=== PATIENT | female | born 1960 | race African-American/Black ===

== ENCOUNTER 2018-01-01 19:40 | Emergency (ER) | payer SELFPAY ==
[2018-01-01] MEDS ORDERED: ASPIRIN 81 MG TABLET, CHEWABLE PO ONE (20:32)
--- NOTE | 2018-01-01 20:35 | ER Document Report ---
ED Medical Screen (RME) - General Chief Complaint: Chest Pain Stated Complaint: CHEST PAIN Time Seen by Provider: 01/01/18 20:29 Notes: 57-year-old female, chief complaint of chest pain in her left lower chest with radiation to the back for 3 days, also complains of cough with green sputum production and felt like she had a fever. Some shortness of breath. Hypertensive but states she forgot to take her labetalol. States that currently she does not have any symptoms unless she takes a deep breath. TRAVEL OUTSIDE OF THE [place] IN LAST 30 DAYS: No - Related Data Allergies/Adverse Reactions: No Known Allergies Allergy (Unverified 01/01/18 19:44) Past Medical History - Social History Frequency of alcohol use: None Drug Abuse: None - Past Medical History Cardiac Medical History: Reports: Hx Hypertension Renal/ Medical History: Denies: Hx Peritoneal Dialysis Physical Exam - Vital signs Vitals: Temp Pulse Resp BP Pulse Ox 99.2 F 64 18 219/127 H 98 01/01/18 20:21 01/01/18 20:21 01/01/18 20:21 01/01/18 20:21 01/01/18 20:21 - Respiratory Respiratory status: No respiratory distress Breath sounds: Normal. No: Decreased air movement, Wheezing - Cardiovascular Rhythm: Regular Heart sounds: Normal auscultation, S1 appreciated, S2 appreciated Murmur: No Course - Vital Signs Vital signs: Temp Pulse Resp BP Pulse Ox 99.2 F 64 18 219/127 H 98 01/01/18 20:21 01/01/18 20:21 01/01/18 20:21 01/01/18 20:21 01/01/18 20:21
[2018-01-01 21:05] LABS: ABSOLUTE BASOPHILS # (AUTO) 0.1 10^3/uL (0.0-0.2); ABSOLUTE EOSINOPHILS # (AUTO) 0.1 10^3/uL (0.0-0.6); ABSOLUTE LYMPHOCYTES (AUTO) 1.5 10^3/uL (0.5-4.7); ABSOLUTE MONOCYTES (AUTO) 0.3 10^3/uL (0.1-1.4); ABSOLUTE NEUT (AUTO) 1.9 10^3/uL (1.7-8.2); BASOPHILS % (AUTO) 1.4 % (0-2); EOSINOPHILS % (AUTO) 1.7 % (0-6); HEMATOCRIT 34.4 % (36.0-47.0); HEMOGLOBIN 11.3 g/dL (12.0-15.5); LYMPHOCYTES % (AUTO) 39.4 % (13-45); MEAN CORPUSCULAR HGB CONC 32.8 g/dL (32.0-36.0); MEAN CORPUSCULAR VOLUME 67 fl (80-97); MONOCYTES % (AUTO) 7.1 % (3-13); PLATELET COUNT 165 10^3/uL (150-450); RED BLOOD COUNT 5.14 10^6/uL (3.72-5.28); RED CELL DISTRIBUTION WIDTH 17.3 % (11.5-14.0); SEGMENTED NEUTROPHILS % (AUTO) 50.4 % (42-78); TOTAL CELLS COUNTED % (AUTO) 100 %; WHITE BLOOD COUNT 3.7 10^3/uL (4.0-10.5)
[2018-01-01 21:24] LABS: ALANINE AMINOTRANSFERASE 25 U/L (9-52); ALBUMIN 4.2 g/dL (3.5-5.0); ALKALINE PHOSPHATASE 77 U/L (38-126); ANION GAP 11 (5-19); ASPARTATE AMINO TRANSFERASE 29 U/L (14-36); BILIRUBIN,DIRECT 0.2 mg/dL (0.0-0.4); BILIRUBIN,TOTAL 0.3 mg/dL (0.2-1.3); BLOOD UREA NITROGEN 9 mg/dL (7-20); CALCIUM 9.5 mg/dL (8.4-10.2); CARBON DIOXIDE 29 mmol/L (22-30); CHLORIDE 105 mmol/L (98-107); CREATINE KINASE 280 U/L (30-135); GLUCOSE 91 mg/dL (75-110); POTASSIUM 3.6 mmol/L (3.6-5.0); SODIUM 144.7 mmol/L (137-145); TOTAL PROTEIN 7.6 g/dL (6.3-8.2)
[2018-01-01] MEDS ORDERED: HYDROCHLOROTHIAZIDE 25 MG TABLET PO ONE (21:27)
[2018-01-01] MEDS ORDERED: AMLODIPINE BESYLATE 10 MG TABLET PO ONE (21:27)
--- NOTE | 2018-01-01 21:33 | ER Document Report ---
ED General - General Chief Complaint: Chest Pain Stated Complaint: CHEST PAIN Time Seen by Provider: 01/01/18 20:29 Notes: Patient is a 57 year old female with a past medical history of essential hypertension, no known cardiac history who presents with 2-3 days of stabbing, constant right-sided chest pain most pronounced when she has an episode of coughing. The patient states that she has had a upper respiratory infection for the past 1 week with associated coughing. She notes that 2-3 days ago she began to develop a stabbing, constant with intermittently worsening pain to the right side of the chest although does note that it can be diffuse in the chest. Contrary to triage assessment note she denies any associated shortness of breath, and denies any back pain to me. She denies a history of similar symptoms in the past. She has not tried to improve her symptoms. She does not have a local general doctor. Patient also notes that she has a long-standing history of poor blood pressure control and currently only takes labetalol for this and has also been noncompliant with this medication. She denies any history of DVT or pulmonary embolus. No history of aortic pathology. She denies any pleuritic pain. TRAVEL OUTSIDE OF THE [place] IN LAST 30 DAYS: No - Related Data Allergies/Adverse Reactions: No Known Allergies Allergy (Unverified 01/01/18 19:44) Past Medical History - General Information source: Patient, Relative - Social History Smoking Status: Never Smoker Frequency of alcohol use: None Drug Abuse: None Lives with: Family Family History: Reviewed & Not Pertinent Patient has suicidal ideation: No Patient has homicidal ideation: No - Past Medical History Cardiac Medical History: Reports: Hx Hypertension Renal/ Medical History: Denies: Hx Peritoneal Dialysis Review of Systems - Review of Systems Notes: Constitutional: Negative for fever. HENT: Negative for sore throat. Eyes: Negative for visual changes. Cardiovascular: Positive for chest pain. Respiratory: Negative for shortness of breath. Gastrointestinal: Negative for abdominal pain, vomiting or diarrhea. Genitourinary: Negative for dysuria. Musculoskeletal: Negative for back pain. Skin: Negative for rash. Neurological: Negative for headaches, weakness or numbness. 10 point ROS negative except as marked above and in HPI. Physical Exam - Vital signs Vitals: Temp Pulse Resp BP Pulse Ox 99.2 F 64 18 219/127 H 98 01/01/18 20:21 01/01/18 20:21 01/01/18 20:21 01/01/18 20:21 01/01/18 20:21 Interpretation: Hypertensive Notes: PHYSICAL EXAMINATION: GENERAL: Well-appearing, well-nourished and in no acute distress. HEAD: Atraumatic, normocephalic. EYES: Pupils equal round and reactive to light, extraocular movements intact, sclera anicteric, conjunctiva are normal. ENT: nares patent, oropharynx clear without exudates. Moist mucous membranes. NECK: Normal range of motion, supple without lymphadenopathy LUNGS: Breath sounds clear to auscultation bilaterally and equal. No wheezes rales or rhonchi. HEART: Regular rate and rhythm without murmurs ABDOMEN: Soft, nontender, normoactive bowel sounds. No guarding, no rebound. No masses appreciated. EXTREMITIES: Normal range of motion, no pitting or edema. No cyanosis. NEUROLOGICAL: No focal neurological deficits. Moves all extremities spontaneously and on command. PSYCH: Normal mood, normal affect. SKIN: Warm, Dry, normal turgor, no rashes or lesions noted. Course - Re-evaluation Re-evalutation: 01/01/18 21:27 Presentation of chest pain in an otherwise well appearing patient. Low clinical suspicion for ACS given clinical history, exam, EKG without ST elevations or depressions, and negative initial troponin. HEART score less than or equal to 3. Patient does report a history of marked hypertension stating "it is actually usually worse than that" regarding her blood pressures that are in the low 200s systolic and 120s-130s diastolic. She has been taking labetalol but states that it does not appear to be working for her blood pressure. PE also seems unlikely given clinical history, absence of tachycardia or dyspnea. Well' s score is 0. CXR without evidence of pneumothorax or pneumonia. No widened mediastinum. Aortic dissection also seems unlikely given history, symmetric pulses, CXR and duration of her hypertension. Her chest pain appears to be most likely costochondritis. Contrary to triage assessment, patient denies any pain radiating to the back. She also denies any symptoms with inspiration only with coughing or movement. It is been going on for at least 4-5 days, is only present when she coughs vigorously and she has had a upper respiratory infection for the past 1-2 weeks. Patient was started on both hydrochlorthiazide and amlodipine for her blood pressure. At this time will discharge with return precautions and follow-up recommendations. Verbal discharge instructions given a the bedside and opportunity for questions given. Medication warnings reviewed. Patient is in agreement with this plan and has verbalized understanding of return precautions and the need for primary care follow-up in the next 24-72 hours. - Vital Signs Vital signs: Temp Pulse Resp BP Pulse Ox 99.2 F 64 12 208/117 H 100 01/01/18 20:21 01/01/18 20:21 01/01/18 22:01 01/01/18 22:01 01/01/18 22:01 - Laboratory Result Diagrams: 01/01/18 20:40 01/01/18 20:40 Laboratory results interpreted by me: 01/01/18 01/01/18 20:40 20:40 WBC 3.7 L Hgb 11.3 L Hct 34.4 L MCV 67 L MCH 22.0 L RDW 17.3 H Creatine Kinase 280 H - Diagnostic Test Radiology reviewed: Image reviewed, Reports reviewed Radiology results interpreted by me: 01/01/18 21:29 Chest x-ray: No acute infiltrate pneumothorax - EKG Interpretation by Me Additional EKG results interpreted by me: 01/01/18 21:30 Sinus rhythm. Rate 65. No ST elevations or depressions. QTC is 450. Findings consistent with LVH. Discharge - Discharge Clinical Impression: Essential hypertension, Viral upper respiratory infection Chest pain Qualifiers: Chest pain type: unspecified Qualified Code(s): R07.9 - Chest pain, unspecified Condition: Good Disposition: HOME, SELF-CARE Additional Instructions: You were seen today for blood pressure that was high. This is a long-term risk factor for multiple medical problems including heart attack and stroke. However, the blood pressure in of itself will not cause you to have an acute stroke or heart attack over the course of just several days or weeks. You need to have a gradual reduction of your blood pressure back to normal levels over the next several months in conjunction with your primary care physician. Return if you develop headache, weakness, numbness, chest pain, pass out, or have any other symptoms that are concerning to you. Please take hydrochlorothiazide and amlodipine as prescribed. Discontinue labetalol. You were seen today for chest pain. The exact cause of your pain is unclear. However, based on your cardiac enzyme testing, chest x-ray, and EKG it does not appear that it is from an immediately life-threatening cause at this time. Your pain is most likely related to your frequent coughing. You may take Tylenol 1000 mg every 6 hours as needed for pain. Please return to emergency department immediately if you have worsening of your chest pain, shortness of breath, vomiting, become unable to exert yourself due to pain or difficulty breathing, you pass out, or have any pain that radiates into your arms, jaw, or back. Please also return if you have any additional symptoms that are concerning to you. Prescriptions: Amlodipine Besylate 10 mg PO DAILY #30 tab Hydrochlorothiazide 25 mg PO DAILY #30 tablet Referrals: GARRY MOONEY MD [ACTIVE STAFF] - Follow up in 3-5 days
[2018-01-01 21:36] LABS: CREATINE KINASE MB 2.56 ng/mL (<4.55)
[2018-01-01 21:49] LABS: TROPONIN I < 0.012 ng/mL
--- NOTE | 2018-01-01 22:04 | RADIOLOGY REPORT (SQ) ---
EXAM DESCRIPTION: CHEST SINGLE VIEW COMPLETED DATE/TIME: 01/01/2018 8:51 pm REASON FOR STUDY: chest pain COMPARISON: None. EXAM PARAMETERS: NUMBER OF VIEWS: One view. TECHNIQUE: Single frontal radiographic view of the chest acquired. RADIATION DOSE: NA LIMITATIONS: None. FINDINGS: LUNGS AND PLEURA: No opacities, masses or pneumothorax. No pleural effusion. MEDIASTINUM AND HILAR STRUCTURES: No masses. Contour normal. HEART AND VASCULAR STRUCTURES: Heart size borderline. No failure BONES: No acute findings. HARDWARE: None in the chest. OTHER: No other significant finding. IMPRESSION: Borderline cardiomegaly without CHF. TECHNICAL DOCUMENTATION: JOB ID: [id number] [employer]- All Rights Reserved Reading location - IP/workstation name: [email or web address]
[2018-01-01 22:07] VITALS: BP 208/117
--- NOTE | 2018-01-02 08:59 | EKG REPORT ---
SEVERITY:- ABNORMAL ECG - SINUS RHYTHM LEFT VENTRICULAR HYPERTROPHY : Confirmed by: Berto Smith MD 02-Jan-2018 08:58:34
== END 2018-01-01 22:42 | disposition home or self-care (01) ==
LOC: ER 19:40
DX: J06.9 Acute upper respiratory infection, unspecified (principal); R07.9 Chest pain, unspecified; I10 Essential (primary) hypertension
CPT/HCPCS: 36415; 71045; 80053; 82550; 82553; 84484; 85025; 93005; 93010; 99285

== ENCOUNTER 2018-09-12 12:40 | Inpatient (IN) | payer OTHER ==
[2018-09-12] MEDS ORDERED: ASPIRIN 81 MG TABLET, CHEWABLE PO ONE (13:56)
[2018-09-12] MEDS ORDERED: NITROGLYCERIN 0.4 MG/TAB 25 TAB/BOTTLE SL ONE (13:57)
[2018-09-12] MEDS ORDERED: NITROGLYCERIN 5 MG (0.2 MG/HR) PATCH.TD24 TD ONE (13:58)
--- NOTE | 2018-09-12 14:00 | ER Document Report ---
ED Medical Screen (RME) - General Chief Complaint: Chest Pain > 30 Stated Complaint: CHEST PAIN Time Seen by Provider: 09/12/18 13:52 TRAVEL OUTSIDE OF THE [place] IN LAST 30 DAYS: No - HPI Notes: 09/12/18 13:59 Patient complained of left-sided chest pain which has been on and off for the past 3 weeks. Patient ran out of her high blood pressure medicine in June. Physical exam is unremarkable. - Related Data Allergies/Adverse Reactions: No Known Allergies Allergy (Verified 09/12/18 13:03) Past Medical History - Social History Frequency of alcohol use: Occasional Drug Abuse: None - Past Medical History Cardiac Medical History: Reports: Hx Hypertension Renal/ Medical History: Denies: Hx Peritoneal Dialysis Physical Exam - Vital signs Vitals: Temp Pulse Resp BP Pulse Ox 98.5 F 72 20 191/122 H 99 09/12/18 13:21 09/12/18 13:21 09/12/18 13:21 09/12/18 13:21 09/12/18 13:21 Course - Vital Signs Vital signs: Temp Pulse Resp BP Pulse Ox 98.5 F 72 20 191/122 H 99 09/12/18 13:21 09/12/18 13:21 09/12/18 13:21 09/12/18 13:21 09/12/18 13:21
[2018-09-12 14:21] LABS: ABSOLUTE LYMPHOCYTES (AUTO) 0.8 10^3/uL (0.5-4.7); ABSOLUTE MONOCYTES (AUTO) 0.2 10^3/uL (0.1-1.4); ABSOLUTE NEUT (AUTO) 1.1 10^3/uL (1.7-8.2); BASOPHILS % (AUTO) 0.7 % (0-2); EOSINOPHILS % (AUTO) 0.8 % (0-6); HEMATOCRIT 35.6 % (36.0-47.0); HEMOGLOBIN 11.4 g/dL (12.0-15.5); MEAN CORPUSCULAR HEMOGLOBIN 21.9 pg (27.0-33.4); MEAN CORPUSCULAR VOLUME 68 fl (80-97); MONOCYTES % (AUTO) 11.3 % (3-13); PLATELET COUNT 152 10^3/uL (150-450); RED BLOOD COUNT 5.22 10^6/uL (3.72-5.28); RED CELL DISTRIBUTION WIDTH 17.3 % (11.5-14.0); SEGMENTED NEUTROPHILS % (AUTO) 52.2 % (42-78); TOTAL CELLS COUNTED % (AUTO) 100 %; WHITE BLOOD COUNT 2.2 10^3/uL (4.0-10.5)
--- NOTE | 2018-09-12 14:25 | ER Document Report ---
ED General - General Chief Complaint: Chest Pain > 30 Stated Complaint: CHEST PAIN Time Seen by Provider: 09/12/18 13:52 Notes: Patient is a 58-year-old female that presents to the emergency department for chief complaint of chest pain. The patient reports that the pain started a few days ago and has been on and off. The currently rate the pain as 3 out of 10, and described as heaviness in the left chest that radiates to the left arm. Th ey have had associated shortness of breath. Denies any diaphoresis, fevers, cough or difficulty breathing. Their risk factors for heart disease include hypertension, uncontrolled not on medication. Patient states she is been concerned about this, she thinks she may have sickle cell as well, she is been having on and off chest pain for the past 3 weeks, and was taking Tums intermittently which was helping initially, but now it does not seem to be helping, and her pain was worse today so she decided come to the ED. Past Medical History: Hypertension, GERD, sickle cell anemia versus trait pat ient unsure Past Surgical History: Denies surgical history Social History: Denies tobacco, alcohol or drug use. Family History: Reviewed and noncontributory for presenting illness Allergies: Reviewed, see documented allergy list. REVIEW OF SYSTEMS: Other than noted above, the 12 point review of systems was reviewed with the patient and were negative, all pertinent findings are included in the HPI. PHYSICAL EXAMINATION: Vital signs reviewed, nursing noted reviewed. GENERAL: Well-appearing, well-nourished and in no acute distress. HEAD: Atraumatic, normocephalic. EYES: Eyes appear normal, extraocular movements intact, sclera anicteric, conjunctiva are normal. ENT: nares patent, oropharynx clear without exudates. Moist mucous membranes. NECK: Normal range of motion, supple without lymphadenopathy LUNGS: Breath sounds clear to auscultation bilaterally and equal. No wheezes rales or rhonchi. No chest wall tenderness HEART: Regular rate and rhythm without murmurs ABDOMEN: Soft, nontender, normoactive bowel sounds. No rebound, guarding, or rigidity. No masses appreciated. EXTREMITIES: Nontender, good range of motion, no pitting or edema. NEUROLOGICAL: No focal neurological deficits. Moves all extremities spontaneously Motor and sensory grossly intact on exam. PSYCH: Normal mood, normal affect. SKIN: Warm, Dry, normal turgor, no rashes or lesions noted on exposed skin TRAVEL OUTSIDE OF THE [place] IN LAST 30 DAYS: No - Related Data Allergies/Adverse Reactions: No Known Allergies Allergy (Verified 09/12/18 13:03) Past Medical History - Social History Smoking Status: Never Smoker Frequency of alcohol use: Occasional Drug Abuse: None Family History: Reviewed & Not Pertinent Patient has suicidal ideation: No Patient has homicidal ideation: No - Past Medical History Cardiac Medical History: Reports: Hx Hypertension Renal/ Medical History: Denies: Hx Peritoneal Dialysis Physical Exam - Vital signs Vitals: Temp Pulse Resp BP Pulse Ox 98.5 F 72 20 191/122 H 99 09/12/18 13:21 09/12/18 13:21 09/12/18 13:21 09/12/18 13:21 09/12/18 13:21 Course - Re-evaluation Re-evalutation: Patient seen and examined vital signs reviewed. Laboratory data and imaging were ordered as appropriate for the patient's presenting symptoms and complaint, with consideration of any critical or life threatening conditions that may be associated with their obtained history and exam as noted above. Patient was treated with aspirin, and sublingual nitroglycerin Results were reviewed when available and demonstrated negative troponin x2, EKG was nonischemic and unchanged from prior, chest x-ray negative The patient was re-evaluated and was stable and improved Evaluation was most consistent with chest pain, nonspecific, I feel this patient should be evaluated with serial troponins as her heart score was 4, and possible stress testing discussed with the hospitalist. Results were discussed with the patient at this point after careful consideration I feel that that patient should be admitted to the hospital. This was discussed with the patient that it is in the best interest for their care to be admitted for further evaluation and management. Patient agreed with this plan of care. A call was placed to the admitted physician, Dr. Sue who graciously accepted the patient onto their service. *Note is created using voice recognition software and may contain spelling, syntax or grammatical errors. Laboratory 09/12/18 09/12/18 09/12/18 14:01 14:01 14:01 WBC 2.2 L RBC 5.22 Hgb 11.4 L Hct 35.6 L MCV 68 L MCH 21.9 L MCHC 32.0 RDW 17.3 H Plt Count 152 Seg Neutrophils % 52.2 Lymphocytes % 35.0 Monocytes % 11.3 Eosinophils % 0.8 Basophils % 0.7 Absolute Neutrophils 1.1 L Absolute Lymphocytes 0.8 Absolute Monocytes 0.2 Absolute Eosinophils 0.0 Absolute Basophils 0.0 Platelet Comment DECREASED Poikilocytosis 2+ Anisocytosis 1+ Ovalocytes 2+ Elk Cells SLIGHT Schistocytes 1+ Retic Count (auto) Absolute Retic PT INR APTT Sodium 142.2 Potassium 3.8 Chloride 105 Carbon Dioxide 28 Anion Gap 9 BUN 9 Creatinine 0.65 Est GFR ( Amer) > 60 Est GFR (Non-Af Amer) > 60 Glucose 92 Calcium 9.4 Total Bilirubin 0.3 Direct Bilirubin 0.1 Neonat Total Bilirubin Not Reportable Neonat Direct Bilirubin Not Reportable Neonat Indirect Bili Not Reportable AST 28 ALT 29 Alkaline Phosphatase 92 Creatine Kinase 211 H CK-MB (CK-2) 2.60 Troponin I < 0.012 Total Protein 7.0 Albumin 4.2 09/12/18 09/12/18 09/12/18 14:01 14:01 16:50 WBC RBC Hgb Hct MCV MCH MCHC RDW Plt Count Seg Neutrophils % Lymphocytes % Monocytes % Eosinophils % Basophils % Absolute Neutrophils Absolute Lymphocytes Absolute Monocytes Absolute Eosinophils Absolute Basophils Platelet Comment Poikilocytosis Anisocytosis Ovalocytes Elk Cells Schistocytes Retic Count (auto) 1.43 Absolute Retic 0.074 PT 14.5 INR 1.07 APTT 30.9 Sodium Potassium Chloride Carbon Dioxide Anion Gap BUN Creatinine Est GFR ( Amer) Est GFR (Non-Af Amer) Glucose Calcium Total Bilirubin Direct Bilirubin Neonat Total Bilirubin Neonat Direct Bilirubin Neonat Indirect Bili AST ALT Alkaline Phosphatase Creatine Kinase CK-MB (CK-2) Troponin I < 0.012 Total Protein Albumin Chest X-Ray 09/12/18 13:56 IMPRESSION: NO ACUTE RADIOGRAPHIC FINDING IN THE CHEST. - Vital Signs Vital signs: Temp Pulse Resp BP Pulse Ox 98.5 F 72 17 204/113 H 98 09/12/18 13:21 09/12/18 13:21 09/12/18 18:01 09/12/18 18:01 09/12/18 18:01 - Laboratory Result Diagrams: 09/12/18 14:01 09/12/18 14:01 Laboratory results interpreted by me: 09/12/18 09/12/18 14:01 14:01 WBC 2.2 L Hgb 11.4 L Hct 35.6 L MCV 68 L MCH 21.9 L RDW 17.3 H Absolute Neutrophils 1.1 L Creatine Kinase 211 H - EKG Interpretation by Me Additional EKG results interpreted by me: EKG demonstrates sinus rhythm with a ventricular rate of 65 bpm, left axis deviation, QTC 421 ms, there is slight ST depressions in leads I and aVL as well as V4 through V6, this is compared with a prior EKG from 01/01/2018, without significant change. Discharge - Discharge Clinical Impression: Uncontrolled hypertension Chest pain Qualifiers: Chest pain type: unspecified Qualified Code(s): R07.9 - Chest pain, unspecified Anemia Qualifiers: Anemia type: unspecified type Qualified Code(s): D64.9 - Anemia, unspecified Condition: Stable Disposition: ADMITTED OBSERVATION Admitting Provider: Hospitalist - Dr. Sue Unit Admitted: Telemetry
[2018-09-12 14:26] LABS: INTERNATIONAL RATION (INR) 1.07; PROTHROMBIN TIME 14.5 SEC (11.4-15.4)
[2018-09-12 14:27] LABS: PARTIAL THROMBOPLASTIN TIME 30.9 SEC (23.5-35.8)
[2018-09-12 14:38] LABS: ALANINE AMINOTRANSFERASE 29 U/L (9-52); ALBUMIN 4.2 g/dL (3.5-5.0); ALKALINE PHOSPHATASE 92 U/L (38-126); ANION GAP 9 (5-19); ASPARTATE AMINO TRANSFERASE 28 U/L (14-36); BILIRUBIN,DIRECT 0.1 mg/dL (0.0-0.4); BILIRUBIN,TOTAL 0.3 mg/dL (0.2-1.3); BLOOD UREA NITROGEN 9 mg/dL (7-20); CALCIUM 9.4 mg/dL (8.4-10.2); CARBON DIOXIDE 28 mmol/L (22-30); CHLORIDE 105 mmol/L (98-107); CREATINE KINASE 211 U/L (30-135); GLUCOSE 92 mg/dL (75-110); POTASSIUM 3.8 mmol/L (3.6-5.0); SODIUM 142.2 mmol/L (137-145)
[2018-09-12 14:45] LABS: ANISOCYTOSIS 1+; BURR CELLS SLIGHT; OVALOCYTES 2+; PLATELET COMMENT DECREASED; POIKILOCYTOSIS 2+; SCHISTOCYTES 1+
[2018-09-12 14:51] LABS: TROPONIN I < 0.012 ng/mL
--- NOTE | 2018-09-12 15:13 | RADIOLOGY REPORT (SQ) ---
EXAM DESCRIPTION: CHEST SINGLE VIEW COMPLETED DATE/TIME: 09/12/2018 2:59 pm REASON FOR STUDY: Chest pain COMPARISON: None. EXAM PARAMETERS: NUMBER OF VIEWS: One view. TECHNIQUE: Single frontal radiographic view of the chest acquired. RADIATION DOSE: NA LIMITATIONS: None. FINDINGS: LUNGS AND PLEURA: No opacities, masses or pneumothorax. No pleural effusion. MEDIASTINUM AND HILAR STRUCTURES: No masses. Contour normal. HEART AND VASCULAR STRUCTURES: Heart normal in size. Normal vasculature. BONES: No acute findings. HARDWARE: None in the chest. OTHER: No other significant finding. IMPRESSION: NO ACUTE RADIOGRAPHIC FINDING IN THE CHEST. TECHNICAL DOCUMENTATION: JOB ID: [id number] [employer]- All Rights Reserved Reading location - IP/workstation name: [email or web address]
[2018-09-12 15:44] LABS: ABSOLUTE RETICS # 0.074 10^6/uL (0.028-0.122); RETICULOCYTE COUNT (AUTO) 1.43 % (0.66-2.85)
[2018-09-12] MEDS ORDERED: ONDANSETRON HCL INJ/PF 4 MG/2 ML SDV IV PRN (18:14)
[2018-09-12] MEDS ORDERED: NITROGLYCERIN 0.4 MG/TAB 25 TAB/BOTTLE SL PRN (18:17)
[2018-09-12] MEDS ORDERED: METOPROLOL TARTRATE 100 MG TABLET PO ONE (18:28)
[2018-09-12] MEDS ORDERED: HYDRALAZINE HCL 50 MG TABLET PO ONE (18:29)
--- NOTE | 2018-09-12 18:47 | EKG REPORT ---
SEVERITY:- ABNORMAL ECG - SINUS RHYTHM LVH WITH SECONDARY REPOLARIZATION ABNORMALITY : Confirmed by: Berto Smith MD 12-Sep-2018 18:47:05
--- NOTE | 2018-09-12 18:58 | PDOC H&P ---
History of Present Illness Admission Date/PCP: 09/12/18 18:05 History of Present Illness: HUMA GARCIA is a 58 year old black female patient from [facility] with past medical history of hypertension and sickle cell trait presents with chief complaint of chest pain of 3 days duration. She describes the chest pain as heaviness localized to the epigastric area and it is nonradiating. Patient denies any chills fever cough palpitation or diaphoresis. No nausea vomiting abdominal pain or any urinary complaints. Patient even though she has hypertension she stopped taking since June of last year because of financial issues. Her blood work shows 2 sets of cardiac enzymes negative. Her EKG is unremarkable. Patient also found to have hypertensive emergency with blood pressure of 204/120. She is given IV hydralazine p.o. metoprolol and p.o. hydralazine. Past Medical History Cardiac Medical History: Reports: Hypertension Social History Smoking Status: Never Smoker - Advance Directive Resuscitation Status: Full Code Family History Family History: Reviewed & Not Pertinent Parental Family History Reviewed: Yes Children Family History Reviewed: Yes Sibling(s) Family History Reviewed.: Yes Medication/Allergy Allergies/Adverse Reactions: No Known Allergies Allergy (Verified 09/12/18 13:03) Review of Systems Constitutional: ABSENT: chills, fever(s), headache(s), weight gain, weight loss Eyes: ABSENT: visual disturbances Ears: ABSENT: hearing changes Cardiovascular: PRESENT: chest pain. ABSENT: dyspnea on exertion, edema, orthropnea, palpitations Respiratory: ABSENT: cough, hemoptysis Gastrointestinal: ABSENT: abdominal pain, constipation, diarrhea, hematemesis, hematochezia, nausea, vomiting Genitourinary: ABSENT: dysuria, hematuria Musculoskeletal: ABSENT: joint swelling Integumentary: ABSENT: rash, wounds Neurological: ABSENT: abnormal gait, abnormal speech, confusion, dizziness, focal weakness, syncope Psychiatric: ABSENT: anxiety, depression, homidical ideation, suicidal ideation Endocrine: ABSENT: cold intolerance, heat intolerance, polydipsia, polyuria Hematologic/Lymphatic: ABSENT: easy bleeding, easy bruising Physical Exam Vital Signs: Temp Pulse Resp BP Pulse Ox 98.5 F 72 16 196/107 H 98 09/12/18 13:21 09/12/18 13:21 09/12/18 18:31 09/12/18 18:31 09/12/18 18:31 Intake & Output 09/11/18 09/12/18 09/13/18 06:59 06:59 06:59 Weight 88.6 kg General appearance: PRESENT: no acute distress, well-developed, well-nourished Head exam: PRESENT: atraumatic, normocephalic Eye exam: PRESENT: conjunctiva pink, EOMI, PERRLA. ABSENT: scleral icterus Ear exam: PRESENT: normal external ear exam Mouth exam: PRESENT: moist, tongue midline Neck exam: ABSENT: carotid bruit, JVD, lymphadenopathy, thyromegaly Respiratory exam: PRESENT: clear to auscultation gui. ABSENT: rales, rhonchi, wheezes Cardiovascular exam: PRESENT: RRR. ABSENT: diastolic murmur, rubs, systolic murmur Pulses: PRESENT: normal dorsalis pedis pul Vascular exam: PRESENT: normal capillary refill GI/Abdominal exam: PRESENT: normal bowel sounds, soft. ABSENT: distended, guarding, mass, organolmegaly, rebound, tenderness Rectal exam: PRESENT: deferred Extremities exam: PRESENT: full ROM. ABSENT: calf tenderness, clubbing, pedal edema Neurological exam: PRESENT: alert, awake, oriented to person, oriented to place, oriented to time, oriented to situation, CN II-XII grossly intact. ABSENT: motor sensory deficit Psychiatric exam: PRESENT: appropriate affect, normal mood. ABSENT: homicidal ideation, suicidal ideation Skin exam: PRESENT: dry, intact, warm. ABSENT: cyanosis, rash Results Laboratory Results: 09/12/18 14:01 09/12/18 14:01 09/12/18 09/12/18 09/12/18 14:01 14:01 14:01 WBC 2.2 L RBC 5.22 Hgb 11.4 L Hct 35.6 L MCV 68 L MCH 21.9 L MCHC 32.0 RDW 17.3 H Plt Count 152 Seg Neutrophils % 52.2 Lymphocytes % 35.0 Monocytes % 11.3 Eosinophils % 0.8 Basophils % 0.7 Absolute Neutrophils 1.1 L Absolute Lymphocytes 0.8 Absolute Monocytes 0.2 Absolute Eosinophils 0.0 Absolute Basophils 0.0 Retic Count (auto) 1.43 Absolute Retic 0.074 Sodium 142.2 Potassium 3.8 Chloride 105 Carbon Dioxide 28 Anion Gap 9 BUN 9 Creatinine 0.65 Est GFR ( Amer) > 60 Est GFR (Non-Af Amer) > 60 Glucose 92 Calcium 9.4 Total Bilirubin 0.3 AST 28 ALT 29 Alkaline Phosphatase 92 Total Protein 7.0 Albumin 4.2 09/12/18 09/12/18 09/12/18 14:01 14:01 16:50 Creatine Kinase 211 H CK-MB (CK-2) 2.60 Troponin I < 0.012 < 0.012 Impressions: Chest X-Ray 09/12/18 13:56 IMPRESSION: NO ACUTE RADIOGRAPHIC FINDING IN THE CHEST. Assessment & Plan - Diagnosis (1) Chest pain Is this a current diagnosis for this admission?: Yes Plan: Patient will be admitted to the hospital for observation and to stress her in the morning. (2) Hypertensive emergency Is this a current diagnosis for this admission?: Yes Plan: Patient has been started Lopressor 50 mg twice a day and hydralazine 50 mg every 8 hours. (3) Chronic anemia Is this a current diagnosis for this admission?: Yes Plan: May be related to her sickle cell trait.
[2018-09-12] MEDS: ENOXAPARIN SODIUM INJ 40 MG/0.4 ML DISP.SYRIN SUBCUT SCH (18:59)
[2018-09-12] MEDS ORDERED: HYDRALAZINE HCL INJ/PF 20 MG/1 ML SDV IV ONE (19:30)
[2018-09-13] MEDS: PANTOPRAZOLE SODIUM 40 MG TABLET.DR PO SCH ×2 (05:36→16:13)
[2018-09-13] MEDS ORDERED: METOPROLOL TARTRATE 50 MG TABLET PO SCH (06:00)
[2018-09-13] MEDS ORDERED: HYDRALAZINE HCL 50 MG TABLET PO SCH (06:00)
[2018-09-13] MEDS ORDERED: HYDRALAZINE HCL INJ/PF 20 MG/1 ML SDV ONE (08:24)
[2018-09-13] MEDS ORDERED: HYDRALAZINE HCL INJ/PF 20 MG/1 ML SDV IV ONE (08:30)
[2018-09-13] MEDS: LISINOPRIL 10 MG TABLET PO SCH (11:35)
[2018-09-13] MEDS: ENOXAPARIN SODIUM INJ 40 MG/0.4 ML DISP.SYRIN SUBCUT SCH (11:38)
[2018-09-13] MEDS: HYDRALAZINE HCL INJ/PF 20 MG/1 ML SDV IV PRN (11:38)
[2018-09-13] MEDS: ACETAMINOPHEN 325 MG TABLET PO PRN (13:23)
[2018-09-13] MEDS: HYDRALAZINE HCL 25 MG TABLET PO SCH ×2 (16:13→21:34)
--- NOTE | 2018-09-13 16:39 | PDOC PROGRESS REPORT ---
Subjective Progress Note for:: 09/13/18 Reason For Visit: CHEST PAIN Physical Exam Vital Signs: Temp Pulse Resp BP Pulse Ox 98.2 F 90 18 159/107 H 98 09/13/18 15:28 09/13/18 15:28 09/13/18 15:28 09/13/18 15:28 09/13/18 15:28 Intake & Output 09/12/18 09/13/18 09/14/18 06:59 06:59 06:59 Weight 88.7 kg General appearance: PRESENT: no acute distress, cooperative, well-developed, well-nourished Head exam: PRESENT: atraumatic, normocephalic Eye exam: PRESENT: conjunctiva pink, EOMI, PERRLA. ABSENT: scleral icterus Mouth exam: PRESENT: moist, tongue midline Neck exam: ABSENT: carotid bruit, JVD, lymphadenopathy, thyromegaly Respiratory exam: PRESENT: clear to auscultation gui, symmetrical, unlabored. ABSENT: rales, rhonchi, wheezes Cardiovascular exam: PRESENT: RRR, +S1, +S2. ABSENT: diastolic murmur, rubs, systolic murmur Pulses: PRESENT: normal dorsalis pedis pul Vascular exam: PRESENT: normal capillary refill GI/Abdominal exam: PRESENT: normal bowel sounds, soft. ABSENT: distended, guarding, mass, organolmegaly, rebound, tenderness Rectal exam: PRESENT: deferred Extremities exam: PRESENT: full ROM. ABSENT: calf tenderness, clubbing, pedal edema Neurological exam: PRESENT: alert, awake, oriented to person, oriented to place, oriented to time, oriented to situation, CN II-XII grossly intact. ABSENT: motor sensory deficit Psychiatric exam: PRESENT: appropriate affect, normal mood. ABSENT: homicidal ideation, suicidal ideation Skin exam: PRESENT: dry, intact, warm. ABSENT: cyanosis, rash Results Laboratory Results: 09/12/18 14:01 09/12/18 14:01 09/12/18 09/12/18 09/12/18 14:01 14:01 16:50 Creatine Kinase 211 H CK-MB (CK-2) 2.60 Troponin I < 0.012 < 0.012 09/13/18 07:45 Creatine Kinase CK-MB (CK-2) Troponin I < 0.012 Impressions: Chest X-Ray 09/12/18 13:56 IMPRESSION: NO ACUTE RADIOGRAPHIC FINDING IN THE CHEST. Assessment & Plan - Diagnosis (1) Chest pain Qualifiers: Chest pain type: unspecified Qualified Code(s): R07.9 - Chest pain, unspecified Is this a current diagnosis for this admission?: Yes Plan: Troponins are negatie x3. CXR is benign. EKG shows NSR with LVH; no ST segment changes. Resting stress portion completed today; ideally will obtain HTN control over night so that stress test can be completed tomorrow. Lipid panel and A1c for risk stratification pending. Patient is placed on daily aspirin and statin therapy. Nitro SL tabs as needed for chest pain. Will continue to monitor on cardiac telemetry. (2) Hypertensive urgency Is this a current diagnosis for this admission?: Yes Plan: Remains hypertensive today; however, planned metoprolol required to be held for stress testing. She is placed on a cardiac diet. Start lisinopril 10 mg daily, hydralazine 25 mg three times daily, and amlodipine 5 mg nightly. IV Hydralazine as needed for BP control. (3) Anemia Qualifiers: Anemia type: unspecified type Qualified Code(s): D64.9 - Anemia, unspecified Is this a current diagnosis for this admission?: Yes Plan: Chronic per patient; does not now baseline Hgb. Will check anemia panel with AM labs. No indications for active bleeding. Check occult stool; may benefit from outpatient GI follow up. Multivitamin with iron supplementation. (4) Obesity (BMI 30.0-34.9) Is this a current diagnosis for this admission?: Yes Plan: Dietary discretion and lifestyle modifications are advised.
[2018-09-13] MEDS: ATORVASTATIN CALCIUM 10 MG TABLET PO SCH (21:33)
[2018-09-13] MEDS: AMLODIPINE BESYLATE 5 MG TABLET PO SCH (21:34)
[2018-09-14] MEDS: HYDRALAZINE HCL 25 MG TABLET PO SCH ×3 (05:58→21:10)
[2018-09-14] MEDS: PANTOPRAZOLE SODIUM 40 MG TABLET.DR PO SCH ×2 (05:59→17:32)
[2018-09-14 07:51] LABS: ABSOLUTE RETICS # 0.069 10^6/uL (0.028-0.122); HEMATOCRIT 34.8 % (36.0-47.0); HEMOGLOBIN 11.5 g/dL (12.0-15.5); MEAN CORPUSCULAR HEMOGLOBIN 22.1 pg (27.0-33.4); MEAN CORPUSCULAR HGB CONC 32.9 g/dL (32.0-36.0); MEAN CORPUSCULAR VOLUME 67 fl (80-97); PLATELET COUNT 151 10^3/uL (150-450); RED BLOOD COUNT 5.19 10^6/uL (3.72-5.28); RED CELL DISTRIBUTION WIDTH 16.8 % (11.5-14.0); RETICULOCYTE COUNT (AUTO) 1.32 % (0.66-2.85); WHITE BLOOD COUNT 2.7 10^3/uL (4.0-10.5)
[2018-09-14 08:00] LABS: CHOLESTEROL 129.78 mg/dL (0-200); IRON(TIBC) 49.4 ug/dL (37-170); TRIGLYCERIDES 72 mg/dL (<150)
[2018-09-14 08:11] LABS: DIRECT LDL 62 mg/dL (<100)
[2018-09-14 09:15] LABS: FOLATE > 20.00 ng/mL (>2.76)
[2018-09-14] MEDS: LISINOPRIL 10 MG TABLET PO SCH (11:08)
[2018-09-14] MEDS: ASPIRIN 81 MG TABLET, ENT COATED PO SCH (11:08)
[2018-09-14] MEDS: MULTIVITAMINS W-IRON TABLET, CHEWABLE PO SCH (11:08)
[2018-09-14] MEDS: ENOXAPARIN SODIUM INJ 40 MG/0.4 ML DISP.SYRIN SUBCUT SCH (11:12)
--- NOTE | 2018-09-14 14:10 | PDOC PROGRESS REPORT ---
Subjective Progress Note for:: 09/14/18 Subjective:: KATHLEEN GARCIA is a 58 year old female patient with past medical history of hypertension and sickle cell trait who was admitted 09/12/18 for chest pain and hypertensive urgency. The patient was seen on morning rounds with her current sons present. She was sitting up to bed on room air. She completed a 6-minute walk on room air this morning without shortness of breath, tachycardia, or chest pain. She states that she has not had any further episodes of chest discomfort or tightness since her arrival. The patient completed the resting portion of her stress test yesterday. Unfortunately, I am being told that she cannot complete the remaining portion of her stress test until Sunday. The patient is advised of the delay. We discussed her multiple risk factors; her HEART score is 4 (moderate risk). The patient states that she would prefer to stay in-house until her testing can be completed. She denies fever, chills, chest pain, palpitations, dyspnea, orthopnea, cough, abdominal pain, nausea vomiting and diarrhea. She has no other questions or concerns. No concerns per nursing. Reason For Visit: CHEST PAIN Physical Exam Vital Signs: Temp Pulse Resp BP Pulse Ox 98.2 F 70 18 148/98 H 99 09/14/18 12:00 09/14/18 12:00 09/14/18 12:00 09/14/18 12:00 09/14/18 12:00 Intake & Output 09/13/18 09/14/18 09/15/18 06:59 06:59 06:59 Intake Total 1082 Balance 1082 Weight 88.7 kg 94.7 kg General appearance: PRESENT: no acute distress, cooperative, well-developed, well-nourished Head exam: PRESENT: atraumatic, normocephalic Eye exam: PRESENT: conjunctiva pink, EOMI, PERRLA. ABSENT: scleral icterus Mouth exam: PRESENT: moist, tongue midline Respiratory exam: PRESENT: clear to auscultation gui. ABSENT: rales, rhonchi, wheezes Cardiovascular exam: PRESENT: RRR. ABSENT: diastolic murmur, rubs, systolic murmur Vascular exam: PRESENT: normal capillary refill Rectal exam: PRESENT: deferred Extremities exam: PRESENT: full ROM. ABSENT: calf tenderness, clubbing, pedal edema Neurological exam: PRESENT: alert, awake, oriented to person, oriented to place, oriented to time, oriented to situation, CN II-XII grossly intact. ABSENT: motor sensory deficit Psychiatric exam: PRESENT: appropriate affect, normal mood. ABSENT: homicidal ideation, suicidal ideation Skin exam: PRESENT: dry, intact, warm. ABSENT: cyanosis, rash Results Laboratory Results: 09/14/18 07:06 09/12/18 14:01 09/14/18 09/14/18 09/14/18 07:06 07:06 07:06 WBC 2.7 L RBC 5.19 Hgb 11.5 L Hct 34.8 L MCV 67 L MCH 22.1 L MCHC 32.9 RDW 16.8 H Plt Count 151 Retic Count (auto) 1.32 Absolute Retic 0.069 Iron 49.4 TIBC 253 % Saturation 20 Ferritin 30.60 Triglycerides 72 Cholesterol 129.78 LDL Cholesterol Direct 62 VLDL Cholesterol 14.0 HDL Cholesterol 44 Vitamin B12 498.0 Folate > 20.00 TSH 1.39 09/12/18 09/12/18 09/12/18 14:01 14:01 16:50 Creatine Kinase 211 H CK-MB (CK-2) 2.60 Troponin I < 0.012 < 0.012 09/13/18 07:45 Creatine Kinase CK-MB (CK-2) Troponin I < 0.012 Impressions: Chest X-Ray 09/12/18 13:56 IMPRESSION: NO ACUTE RADIOGRAPHIC FINDING IN THE CHEST. Assessment & Plan - Diagnosis (1) Chest pain Qualifiers: Chest pain type: unspecified Qualified Code(s): R07.9 - Chest pain, unspecified Is this a current diagnosis for this admission?: Yes Plan: Troponins are negative x3. CXR is benign. EKG shows NSR with LVH; no ST segment changes. Resting stress portion completed yesterday; remaining test to be completed Sunday. Lipid panel is acceptable. A1c 5.5% TSH normal. Patient is placed on daily aspirin and statin therapy. Nitro SL tabs as needed for chest pain. Will continue to monitor on cardiac telemetry. (2) Hypertensive urgency Is this a current diagnosis for this admission?: Yes Plan: Much improved today; 148/98 manual. She is placed on a cardiac diet. Continue lisinopril 10 mg daily, hydralazine 25 mg three times daily, and amlodipine 5 mg nightly. IV Hydralazine as needed for BP control. (3) Anemia Qualifiers: Anemia type: unspecified type Qualified Code(s): D64.9 - Anemia, unspecified Is this a current diagnosis for this admission?: Yes Plan: Chronic per patient; does not know baseline Hgb. Anemia panel is nml. No indications for active bleeding. Multivitamin with iron supplementation. (4) Obesity (BMI 30.0-34.9) Is this a current diagnosis for this admission?: Yes Plan: Dietary discretion and lifestyle modifications are advised. - Time Time Spent with patient: 15-24 minutes Medications reviewed and adjusted accordingly: Yes Anticipated discharge: Home
[2018-09-14] MEDS: AMLODIPINE BESYLATE 5 MG TABLET PO SCH (21:10)
[2018-09-14] MEDS: ATORVASTATIN CALCIUM 10 MG TABLET PO SCH (21:10)
[2018-09-14] MEDS: HYDRALAZINE HCL INJ/PF 20 MG/1 ML SDV IV PRN (21:12)
[2018-09-14] MEDS ORDERED: FUROSEMIDE INJ/PF 40 MG/4 ML SDV IV ONE (23:37)
[2018-09-14] MEDS ORDERED: NITROGLYCERIN 2% OINTMENT 1 GM PACKET TP ONE (23:37)
[2018-09-14] MEDS ORDERED: ENALAPRILAT DIHYDRATE INJ/PF 2.5 MG/2 ML SDV IV PRN (23:37)
[2018-09-15] MEDS: ACETAMINOPHEN 325 MG TABLET PO PRN (01:13)
[2018-09-15] MEDS: PANTOPRAZOLE SODIUM 40 MG TABLET.DR PO SCH ×2 (05:39→17:21)
[2018-09-15] MEDS: HYDRALAZINE HCL 25 MG TABLET PO SCH ×3 (05:39→21:24)
[2018-09-15] MEDS: LISINOPRIL 10 MG TABLET PO SCH (11:00)
[2018-09-15] MEDS: ASPIRIN 81 MG TABLET, ENT COATED PO SCH (11:00)
[2018-09-15] MEDS: MULTIVITAMINS W-IRON TABLET, CHEWABLE PO SCH (11:00)
[2018-09-15] MEDS: ENOXAPARIN SODIUM INJ 40 MG/0.4 ML DISP.SYRIN SUBCUT SCH (11:01)
--- NOTE | 2018-09-15 13:03 | PDOC PROGRESS REPORT ---
Subjective Progress Note for:: 09/15/18 Subjective:: KATHLEEN GARCIA is a 58 year old female patient with past medical history of hypertension and sickle cell trait who was admitted 09/12/18 for chest pain and hypertensive urgency. The patient was seen on morning rounds with her current sons present. She was sitting up to bed on room air. She states that she has not had any further episodes of chest discomfort or tightness since her arrival. She reports feeling unwell overnight; describes a general sense of the knees and left lower extremity tingling without chest pain, palpitations, dyspnea, headache or dizzi ness. Of note, the patient became severely hypertensive with blood pressure 200/120 overnight. The patient completed the resting portion of her stress test Sunday Unfortunately,the remaining portion of her stress test can't be completed until Sunday. The patient is advised of the delay. We discussed her multiple risk factors; her HEART score is 4 (moderate risk). The patient states that she w ould prefer to stay in-house until her testing can be completed. She denies fever, chills, chest pain, palpitations, dyspnea, orthopnea, cough, abdominal pain, nausea vomiting and diarrhea. She has no other questions or concerns. No concerns per nursing. Reason For Visit: CHEST PAIN Physical Exam Vital Signs: Temp Pulse Resp BP Pulse Ox 98.1 F 96 16 148/93 H 98 09/15/18 08:00 09/15/18 08:00 09/15/18 08:00 09/15/18 08:00 09/15/18 08:00 Intake & Output 09/14/18 09/15/18 09/16/18 06:59 06:59 06:59 Intake Total 1082 2100 Output Total 1200 Balance 1082 900 Weight 94.7 kg 93.1 kg General appearance: PRESENT: no acute distress, cooperative, well-developed, well-nourished - Overweight Head exam: PRESENT: atraumatic, normocephalic Eye exam: PRESENT: conjunctiva pink, EOMI, PERRLA. ABSENT: scleral icterus Mouth exam: PRESENT: moist, tongue midline Respiratory exam: PRESENT: clear to auscultation gui, symmetrical, unlabored. ABSENT: rales, rhonchi, wheezes Cardiovascular exam: PRESENT: RRR, +S1, +S2. ABSENT: diastolic murmur, rubs, systolic murmur Vascular exam: PRESENT: normal capillary refill GI/Abdominal exam: PRESENT: normal bowel sounds, soft. ABSENT: distended, guarding, mass, organolmegaly, rebound, tenderness Rectal exam: PRESENT: deferred Extremities exam: PRESENT: full ROM. ABSENT: calf tenderness, clubbing, pedal edema Neurological exam: PRESENT: alert, awake, oriented to person, oriented to place, oriented to time, oriented to situation, CN II-XII grossly intact. ABSENT: motor sensory deficit Psychiatric exam: PRESENT: appropriate affect, normal mood. ABSENT: homicidal ideation, suicidal ideation Skin exam: PRESENT: dry, intact, warm. ABSENT: cyanosis, rash Results Laboratory Results: 09/14/18 07:06 09/12/18 14:01 09/12/18 09/12/18 09/12/18 14:01 14:01 16:50 Creatine Kinase 211 H CK-MB (CK-2) 2.60 Troponin I < 0.012 < 0.012 09/13/18 07:45 Creatine Kinase CK-MB (CK-2) Troponin I < 0.012 Impressions: Chest X-Ray 09/12/18 13:56 IMPRESSION: NO ACUTE RADIOGRAPHIC FINDING IN THE CHEST. Assessment & Plan - Diagnosis (1) Chest pain Qualifiers: Chest pain type: unspecified Qualified Code(s): R07.9 - Chest pain, unspecified Is this a current diagnosis for this admission?: Yes Plan: Troponins are negative x3. CXR is benign. EKG shows NSR with LVH; no ST segment changes. Resting stress portion completed Sunday; remaining test to be completed Sunday. Lipid panel is acceptable. A1c 5.5% TSH normal. Patient is placed on daily aspirin and statin therapy. Nitro SL tabs as needed for chest pain. Will continue to monitor on cardiac telemetry. (2) Hypertensive urgency Is this a current diagnosis for this admission?: Yes Plan: Hypertensive overnight; Blood pressure 210/120. She was provided IV furosemide and nitroglycerin paste with improvement of blood pressure to 165/98. Renal-artery ultrasound and echocardiogram are pending. She is placed on a cardiac diet. Increase to lisinopril 20 mg daily Increase to amlodipine 10 mg nightly. Continue hydralazine 25 mg three times daily Start HCTZ 12.5 mg every morning. IV Hydralazine as needed for BP control. Consider nephro/cardiology consultation. (3) Anemia Qualifiers: Anemia type: unspecified type Qualified Code(s): D64.9 - Anemia, unspecified Is this a current diagnosis for this admission?: Yes Plan: Chronic per patient; does not know baseline Hgb. Stable at 11.5 Anemia panel is nml. No indications for active bleeding. Multivitamin with iron supplementation. (4) Obesity (BMI 30.0-34.9) Is this a current diagnosis for this admission?: Yes Plan: Dietary discretion and lifestyle modifications are advised. - Time Time Spent with patient: 15-24 minutes Medications reviewed and adjusted accordingly: Yes Anticipated discharge: Home Within: within 24 hours
[2018-09-15] MEDS: AMLODIPINE BESYLATE 10 MG TABLET PO SCH (21:23)
[2018-09-15] MEDS: ATORVASTATIN CALCIUM 10 MG TABLET PO SCH (21:24)
[2018-09-15] MEDS: HYDRALAZINE HCL INJ/PF 20 MG/1 ML SDV IV PRN (21:24)
[2018-09-16] MEDS: HYDRALAZINE HCL INJ/PF 20 MG/1 ML SDV IV PRN ×2 (04:18→20:20)
[2018-09-16] MEDS: HYDRALAZINE HCL 25 MG TABLET PO SCH ×3 (06:16→21:48)
[2018-09-16] MEDS: ACETAMINOPHEN 325 MG TABLET PO PRN (06:17)
[2018-09-16] MEDS: PANTOPRAZOLE SODIUM 40 MG TABLET.DR PO SCH ×2 (06:17→16:46)
[2018-09-16 06:27] LABS: RED CELL DISTRIBUTION WIDTH 16.8 % (11.5-14.0)
[2018-09-16 06:36] LABS: HEMATOCRIT 37.6 % (36.0-47.0); HEMOGLOBIN 12.3 g/dL (12.0-15.5); MEAN CORPUSCULAR HEMOGLOBIN 21.8 pg (27.0-33.4); MEAN CORPUSCULAR HGB CONC 32.7 g/dL (32.0-36.0); MEAN CORPUSCULAR VOLUME 67 fl (80-97); RED BLOOD COUNT 5.63 10^6/uL (3.72-5.28); WHITE BLOOD COUNT 3.5 10^3/uL (4.0-10.5)
[2018-09-16 06:42] LABS: ANION GAP 12 (5-19); BLOOD UREA NITROGEN 19 mg/dL (7-20); CALCIUM 9.8 mg/dL (8.4-10.2); CARBON DIOXIDE 27 mmol/L (22-30); CHLORIDE 102 mmol/L (98-107); GLUCOSE 93 mg/dL (75-110); POTASSIUM 3.8 mmol/L (3.6-5.0); SODIUM 140.6 mmol/L (137-145)
[2018-09-16 07:12] LABS: PLATELET COUNT 140 10^3/uL (150-450)
[2018-09-16] MEDS ORDERED: HYDROCHLOROTHIAZIDE 12.5 MG TABLET PO SCH (08:00)
[2018-09-16] MEDS: LISINOPRIL 10 MG TABLET PO SCH (09:06)
--- NOTE | 2018-09-16 10:13 | RADIOLOGY REPORT (SQ) ---
EXAM DESCRIPTION: U/S LTD DUPLEX ART/SHANNAN FLOW COMPLETED DATE/TIME: 09/15/2018 3:22 pm REASON FOR STUDY: resistant HTN/HTN urgency COMPARISON: None. TECHNIQUE: Realtime and static grayscale images acquired. Selected color Doppler, velocities and spe ctral images recorded. LIMITATIONS: None. FINDINGS: RIGHT KIDNEY: RENAL ARTERY VELOCITIES: 55.7 cm/sec. Segmental artery velocity 62 cm/sec. RENAL VEIN: Color doppler flow present, patent. VELOCITY RATIO: Renal/aortic ratio is 0.59. Normal waveforms. KIDNEY: Normal size, 11.3 cm. No significant pathology. LEFT KIDNEY: RENAL ARTERY VELOCITIES: 60.4 cm/sec. Segmental artery velocity 105.8 cm/sec. RENAL VEIN: Color doppler flow present, patent. VELOCITY RATIO: Renal/aortic ratio 0.64. Normal waveforms. KIDNEY: Normal size, 10.1 cm. No significant pathology. BLADDER: Normal. OTHER: No other significant finding. IMPRESSION: NO DOPPLER EVIDENCE OF HEMODYNAMICALLY SIGNIFICANT RENAL ARTERY STENOSIS. COMMENT: NORMAL RENAL ARTERY/AORTA VELOCITY RATIO IS LESS THAN OR EQUAL TO 3.5. TECHNICAL DOCUMENTATION: JOB ID: [id number] [employer]- All Rights Reserved Reading location - IP/workstation name: [email or web address]
[2018-09-16] MEDS: ASPIRIN 81 MG TABLET, ENT COATED PO SCH (10:59)
[2018-09-16] MEDS: ENOXAPARIN SODIUM INJ 40 MG/0.4 ML DISP.SYRIN SUBCUT SCH (10:59)
[2018-09-16] MEDS: MULTIVITAMINS W-IRON TABLET, CHEWABLE PO SCH (10:59)
--- NOTE | 2018-09-16 13:33 | PDOC PROGRESS REPORT ---
Subjective Progress Note for:: 09/16/18 Subjective:: KATHLEEN GARCIA is a 58 year old female patient with past medical history of hypertension and sickle cell trait who was admitted 09/12/18 for chest pain and hypertensive urgency. The patient was seen on morning rounds, she was found resting comfortably on room air. She reports that she is frustrated by her continued high blood pressures but otherwise is feeling well. She has no new complaints or symptoms. The patient's blood pressure appeared to be better controlled yesterday; 140s/90s. However this morning she is returned to triples over triple; 150/110. Unfortunately, this meant that her stress test had to be placed on hold yet again. She denies fever, chills, chest pain, palpitations, dyspnea, orthopnea, cough, abdominal pain, nausea vomiting and diarrhea. She has no other questions or concerns. No concerns per nursing. Reason For Visit: CHEST PAIN Physical Exam Vital Signs: Temp Pulse Resp BP Pulse Ox 98.1 F 112 H 16 149/100 H 98 09/16/18 07:57 09/16/18 07:57 09/16/18 07:57 09/16/18 07:57 09/16/18 07:57 Intake & Output 09/15/18 09/16/18 09/17/18 06:59 06:59 06:59 Intake Total 2100 1700 Output Total 1200 2270 Balance 900 -570 Weight 93.1 kg 94.2 kg General appearance: PRESENT: no acute distress, cooperative, well-developed, well-nourished - Overweight Head exam: PRESENT: atraumatic, normocephalic Eye exam: PRESENT: conjunctiva pink, EOMI, PERRLA. ABSENT: scleral icterus Ear exam: PRESENT: normal external ear exam Mouth exam: PRESENT: moist, tongue midline Respiratory exam: PRESENT: clear to auscultation gui. ABSENT: rales, rhonchi, wheezes Cardiovascular exam: PRESENT: RRR, +S1, +S2. ABSENT: diastolic murmur, rubs, s ystolic murmur Pulses: PRESENT: normal dorsalis pedis pul Vascular exam: PRESENT: normal capillary refill GI/Abdominal exam: PRESENT: normal bowel sounds, soft. ABSENT: distended, guarding, mass, organolmegaly, rebound, tenderness Rectal exam: PRESENT: deferred Extremities exam: PRESENT: full ROM. ABSENT: calf tenderness, clubbing, pedal edema Neurological exam: PRESENT: alert, awake, oriented to person, oriented to place, oriented to time, oriented to situation, CN II-XII grossly intact. ABSENT: motor sensory deficit Psychiatric exam: PRESENT: anxious, appropriate affect, normal mood. ABSENT: homicidal ideation, suicidal ideation Skin exam: PRESENT: dry, intact, warm. ABSENT: cyanosis, rash Results Laboratory Results: 09/16/18 05:18 09/16/18 05:18 09/15/18 09/16/18 09/16/18 14:30 05:18 05:18 WBC 3.5 L RBC 5.63 H Hgb 12.3 Hct 37.6 MCV 67 L MCH 21.8 L MCHC 32.7 RDW 16.8 H Plt Count 140 L Sodium 140.6 Potassium 3.8 Chloride 102 Carbon Dioxide 27 Anion Gap 12 BUN 19 Creatinine 0.65 Est GFR ( Amer) > 60 Est GFR (Non-Af Amer) > 60 Glucose 93 Calcium 9.8 Stool Occult Blood NEGATIVE 09/12/18 09/12/18 09/12/18 14:01 14:01 16:50 Creatine Kinase 211 H CK-MB (CK-2) 2.60 Troponin I < 0.012 < 0.012 09/13/18 07:45 Creatine Kinase CK-MB (CK-2) Troponin I < 0.012 Impressions: Chest X-Ray 09/12/18 13:56 IMPRESSION: NO ACUTE RADIOGRAPHIC FINDING IN THE CHEST. Vascular Ultrasound 09/15/18 00:00 IMPRESSION: NO DOPPLER EVIDENCE OF HEMODYNAMICALLY SIGNIFICANT RENAL ARTERY STENOSIS. Assessment & Plan - Diagnosis (1) Chest pain Qualifiers: Chest pain type: unspecified Qualified Code(s): R07.9 - Chest pain, unspecified Is this a current diagnosis for this admission?: Yes Plan: Troponins are negative x3. CXR is benign. EKG shows NSR with LVH; no ST segment changes. Resting stress portion completed Sunday; has not been able to complete stress test due to persistent hypertension Lipid panel is acceptable. A1c 5.5% TSH normal. Echocardiogram is pending Patient is placed on daily aspirin and statin therapy. Nitro SL tabs as needed for chest pain. Will continue to monitor on cardiac telemetry. (2) Hypertensive urgency Is this a current diagnosis for this admission?: Yes Plan: Continued difficulty obtaining blood pressure control despite escalation of antihypertensive; 150/110 today. Renal-artery ultrasound is benign. Echocardiogram is pending. She is placed on a cardiac diet. Increase to lisinopril 40 mg daily today. Continue amlodipine 10 mg nightly. Continue hydralazine 25 mg three times daily Increase to HCTZ 25 mg every morning today. IV Hydralazine as needed for BP control. Cardiology was consulted; spoke with Dr. Hernandez who recommends nephrology consultation instead. We will ask Dr. Dill to see the patient; appreciate his valuable assistance. (3) Anemia Qualifiers: Anemia type: unspecified type Qualified Code(s): D64.9 - Anemia, unspecified Is this a current diagnosis for this admission?: Yes Plan: Improved. Chronic per patient; does not know baseline Hgb. Stable at 12.3 Anemia panel is nml. Occult stool is negative. No indications for active bleeding. Multivitamin with iron supplementation. (4) Obesity (BMI 30.0-34.9) Is this a current diagnosis for this admission?: Yes Plan: Dietary discretion and lifestyle modifications are advised. - Time Time Spent with patient: 15-24 minutes Medications reviewed and adjusted accordingly: Yes Anticipated discharge: Home Within: within 24 hours - Inpatient Certification Based on my medical assessment, after consideration of the patient's comorbidities, presenting symptoms, or acuity I expect that the services needed warrant INPATIENT care.: Yes I certify that my determination is in accordance with my understanding of Medicare's requirements for reasonable and necessary INPATIENT services [42 CFR 412.3e].: Yes Medical Necessity: Failure to Improve With Outpatient Therapy, Need For Continuous Telemetry Monitoring
[2018-09-16] MEDS ORDERED: LISINOPRIL 10 MG TABLET PO ONE (14:45)
--- NOTE | 2018-09-16 21:31 | XCELERA REPORT ---
[address] [address] Transthoracic Echocardiogram Report Name: HUMA GARCIA Age: 58 yrs Gender: Female : 1960 Patient Status: Inpatient Patient Location: [address] [place], [place] [id number] Study Date: 09/16/2018 10:26 AM Height: 26 in Weight: 205 lb BSA: 1.0 m2 Procedure: A two-dimensional transthoracic echocardiogram with color flow and Doppler was performed. The study was technically difficult with many images being suboptimal in quality. The study was technically limited with all images being suboptimal in quality. Reason For Study: resistant hypertension History: resistant hypertension. Ordering Physician: JOSE CALLAWAY Performed By: Sophia Villa Interpretation Summary The left ventricle is normal in size. There is moderate concentric left ventricular hypertrophy. LV EF is 65% The left ventricular ejection fraction is within normal limits. Doppler measurements suggest impaired left ventricular relaxation, which is associated with grade I/IV or mild diastolic dysfunction The left ventricular wall motion is normal. There is no thrombus. There is no ventricular septal defect visualized. The right ventricle is normal in size and function. The right ventricle is not well visualized secondary to technical limitations The right atrium is normal. The left atrial size is normal. The interatrial septum is intact with no evidence for an atrial septal defect. There is no Doppler evidence for an interatrial shunt There is no evidence of mitral valve prolapse. There is no vegetation seen on the mitral valve. There is no mitral valve stenosis. There is a trace amount of mitral regurgitation There is no tricuspid stenosis. There is a trace to mild amount of tricuspid regurgitation There is mild pulmonary hypertension by echo RVSP is 31 to 36 mm of Hg , with RA mean of 5 to 10. There is no pulmonic valvular stenosis. The aortic root is normal size. Mildly dilated ascending aorta. The inferior vena cava appeared normal and decreased > 50% with respiration (RAP 5-10 mmHg) There is no pericardial effusion. There is no aortic valve stenosis There is no LVOT obstruction. There is a trace amount of aortic regurgitation MMode/2D Measurements & Calculations RVDd: 3.4 cm LVIDd: 3.8 cm FS: 31.1 % Ao root diam: 3.5 cm IVSd: 1.7 cm LVIDs: 2.6 cm EDV(Teich): Ao root area: LVPWd: 1.7 cm 60.6 ml 9.5 cm2 ESV(Teich): 24.5 ml EF(Teich): 59.6 % EDV(MOD-sp4): SV(MOD-sp4): 52.0 ml 17.7 ml ESV(MOD-sp4): 34.3 ml EF(MOD-sp4): 34.0 % Doppler Measurements & Calculations MV E max jennifer: MV dec slope: Ao V2 max: AI max jennifer: 43.7 cm/sec 132.3 cm/sec 360.5 cm/sec MV A max jennifer: 275.9 cm/sec2 Ao max PG: AI max P.0 mmHg 77.7 cm/sec MV dec time: 7.0 mmHg AI dec slope: MV E/A: 0.56 0.16 sec 153.9 cm/sec2 AI P1/2t: 686.0 msec LV V1 max PG: PA V2 max: TR max jennifer: 3.7 mmHg 87.6 cm/sec 253.6 cm/sec LV V1 max: PA max P.1 mmHg TR max P.4 cm/sec 25.7 mmHg Left Ventricle The left ventricle is normal in size. There is moderate concentric left ventricular hypertrophy. LV EF is 65%. The left ventricular ejection fraction is within normal limits. Doppler measurements suggest impaired left ventricular relaxation, which is associated with grade I/IV or mild diastolic dysfunction. The left ventricular wall motion is normal. There is no thrombus. There is no ventricular septal defect visualized. Right Ventricle The right ventricle is normal in size and function. The right ventricle is not well visualized secondary to technical limitations. Atria The right atrium is normal. The left atrial size is normal. The interatrial septum is intact with no evidence for an atrial septal defect. There is no Doppler evidence for an interatrial shunt. Mitral Valve There is no evidence of mitral valve prolapse. There is no vegetation seen on the mitral valve. There is no mitral valve stenosis. There is a trace amount of mitral regurgitation. Aortic Valve There is no aortic valvular vegetation. There is no aortic valve stenosis. There is no LVOT obstruction. There is a trace amount of aortic regurgitation. Tricuspid Valve There is no tricuspid stenosis. There is a trace to mild amount of tricuspid regurgitation. There is mild pulmonary hypertension by echo. RVSP is 31 to 36 mm of Hg , with RA mean of 5 to 10. Pulmonic Valve There is no pulmonic valvular stenosis. There is no pulmonic valvular regurgitation. Great Vessels The aortic root is normal size. Mildly dilated ascending aorta. The inferior vena cava appeared normal and decreased > 50% with respiration (RAP 5-10 mmHg). Effusions There is no pericardial effusion. : JOSE CALLAWAY > Harini Hernandez
[2018-09-16] MEDS: AMLODIPINE BESYLATE 10 MG TABLET PO SCH (21:45)
[2018-09-16] MEDS: ATORVASTATIN CALCIUM 10 MG TABLET PO SCH (21:48)
[2018-09-17] MEDS: PANTOPRAZOLE SODIUM 40 MG TABLET.DR PO SCH ×2 (06:15→17:22)
[2018-09-17] MEDS: HYDRALAZINE HCL 25 MG TABLET PO SCH ×2 (06:15→13:48)
[2018-09-17] MEDS ORDERED: HYDROCHLOROTHIAZIDE 25 MG TABLET PO SCH (08:00)
[2018-09-17] MEDS ORDERED: HYDROCHLOROTHIAZIDE 12.5 MG TABLET PO SCH (08:00)
[2018-09-17] MEDS ORDERED: LISINOPRIL 10 MG TABLET PO ONE (08:30)
[2018-09-17] MEDS: ACETAMINOPHEN 325 MG TABLET PO PRN ×2 (08:31→13:49)
[2018-09-17] MEDS: MULTIVITAMINS W-IRON TABLET, CHEWABLE PO SCH (09:37)
[2018-09-17] MEDS: ASPIRIN 81 MG TABLET, ENT COATED PO SCH (09:37)
[2018-09-17] MEDS: ENOXAPARIN SODIUM INJ 40 MG/0.4 ML DISP.SYRIN SUBCUT SCH (09:37)
[2018-09-17] MEDS ORDERED: LISINOPRIL 10 MG TABLET PO SCH (10:00)
--- NOTE | 2018-09-17 15:09 | PDOC CONSULTATION ---
Consultation Consult Date: 09/17/18 Consult reason:: Labile hypertension History of Present Illness Admission Date/PCP: 09/15/18 08:00 History of Present Illness: HUMA GARCIA is a 58 year old female with a history of long-standing apparently labile hypertension, Sickle cell trait came to the hospital with history of progressive chest pain over the last 2-3 weeks. During evaluation she was found to have severe hypertension. She denies any history of flushing attacks skin changes rashes. The chest pain apparently was retrosternal with some radiation to the left shoulder but without any precipitating or relieving factors. She also admits to a lot of gas. Labs and medications reviewed. She denies noncompliance. She has history of taking intermittent NSAIDs.She says but before she moved here from [place] her blood pressure would be in the 140- 160 systolic range. It never used to be about 180. When she used to go to the doctor's offices it usually is in the 160-170 range.She denies any history of r ecreational drug use including cocaine.Reviewed echocardiogram which was rather unremarkable with no signs of LV decompensation or hypertrophy. Past Medical History Cardiac Medical History: Reports: Hypertension-primary, Myocardial Infarction - 15 years ago Social History Smoking Status: Never Smoker Drugs: None - Advance Directive Resuscitation Status: Full Code Family History Parental Family History Reviewed: Yes - Denies any CKD. Children Family History Reviewed: No Sibling(s) Family History Reviewed.: No Medication/Allergy Home Medications: No Home Medications 09/12/18 Allergies/Adverse Reactions: No Known Allergies Allergy (Verified 09/12/18 13:03) Review of Systems Constitutional: ABSENT: fatigue, fever(s), headache(s), night sweats, weakness Ears: ABSENT: hearing changes Nose, Mouth, and Throat: ABSENT: mouth pain, sore throat Cardiovascular: PRESENT: chest pain. ABSENT: dyspnea on exertion, edema, orthropnea, palpitations Respiratory: ABSENT: dyspnea, hemoptysis Gastrointestinal: PRESENT: bloating. ABSENT: abdominal pain, coffee ground emesis, diarrhea, dysphagia, heartburn, hematemesis, nausea, vomiting Genitourinary: ABSENT: difficulty urinating, dysuria, hematuria Musculoskeletal: ABSENT: deformity, joint swelling Integumentary: ABSENT: lesions, pruritus, rash Neurological: ABSENT: abnormal gait, abnormal speech, confusion, convulsions, focal weakness, frequent falls, paresthesias, tingling, tremor(s) Endocrine: ABSENT: heat intolerance, polydipsia Hematologic/Lymphatic: ABSENT: easy bruising, lymphadenopathy Physical Exam Vital Signs: Temp Pulse Resp BP Pulse Ox 97.9 F 78 15 155/95 H 97 09/17/18 12:00 09/17/18 12:00 09/17/18 12:00 09/17/18 12:00 09/17/18 12:00 Intake & Output 09/16/18 09/17/18 09/18/18 06:59 06:59 06:59 Intake Total 1700 1575 Output Total 2270 1900 Balance -570 -325 Weight 94.2 kg 93.5 kg General appearance: PRESENT: no acute distress Eye exam: PRESENT: conjunctiva pink, EOMI, PERRLA Mouth exam: PRESENT: moist, neck supple Neck exam: ABSENT: lymphadenopathy, meningismus, tenderness, thyromegaly, tracheal deviation Respiratory exam: PRESENT: clear to auscultation gui. ABSENT: crackles Cardiovascular exam: PRESENT: +S1, +S2 GI/Abdominal exam: PRESENT: normal bowel sounds, soft. ABSENT: organomegaly, renal bruit, tenderness Extremities exam: ABSENT: pedal edema Neurological exam: PRESENT: alert, awake, oriented to person, oriented to place Psychiatric exam: PRESENT: appropriate affect Skin exam: ABSENT: erythema, mottled, rash Results Laboratory Results: 09/16/18 05:18 09/16/18 05:18 09/12/18 09/12/18 09/12/18 14:01 14:01 16:50 Creatine Kinase 211 H CK-MB (CK-2) 2.60 Troponin I < 0.012 < 0.012 09/13/18 07:45 Creatine Kinase CK-MB (CK-2) Troponin I < 0.012 Impressions: Chest X-Ray 09/12/18 13:56 IMPRESSION: NO ACUTE RADIOGRAPHIC FINDING IN THE CHEST. Vascular Ultrasound 09/15/18 00:00 IMPRESSION: NO DOPPLER EVIDENCE OF HEMODYNAMICALLY SIGNIFICANT RENAL ARTERY ST ENOSIS. Assessment & Plan - Diagnosis (1) Chest pain Qualifiers: Chest pain type: unspecified Qualified Code(s): R07.9 - Chest pain, unspecified Is this a current diagnosis for this admission?: Yes Plan: Being ruled out. As per hospitalist. (2) Chronic anemia Is this a current diagnosis for this admission?: Yes Plan: Apparently related to sickle cell. No evidences to indicate GI bleed. As per hospitalist. (3) Uncontrolled hypertension Plan: Her blood pressure usually ranges between 140-160 systolic. No obvious symptoms indicated a secondary hypertension at the moment. Blood pressure is a relatively well controlled at the moment.I would just up titrate the hydralazine which has been started at 25 to keep her blood pressure in the 130-140 systolic range.
--- NOTE | 2018-09-17 17:13 | PDOC DISCHARGE SUMMARY ---
General - Admit/Disc Date/PCP Admission Date/Primary Care Provider: 09/15/18 08:00 Discharge Date: 09/17/18 - Discharge Diagnosis (1) Hypertensive urgency Is this a current diagnosis for this admission?: Yes Summary: She has been started on multiple medications to help control her blood pressure. She still has variation in her blood pressure. But overall systolic has been staying less than 160 systolic less than 100. She does need to follow-up with her family doctor for for further fine tuning of her blood pressure. She also needs to follow-up with cardiology for stress test. (2) Chest pain Is this a current diagnosis for this admission?: Yes Summary: Troponins have been negative x3 during her admission. Due to her varying blood pressure she is not been able to get a stress test but this will need to be done outpatient. (3) Obesity (BMI 30.0-34.9) Is this a current diagnosis for this admission?: Yes Summary: We discussed diet and weight loss as this will help with her blood pressure as well as being minimize risks of sleep apnea and diabetes in the future. - Additional Information Resuscitation Status: Full Code Discharge Diet: Cardiac Discharge Activity: Activity As Tolerated Prescriptions: Amlodipine Besylate [Norvasc 10 mg Tablet] 10 mg PO QHS 30 Days #30 tablet Atorvastatin Calcium [Lipitor 10 mg Tablet] 10 mg PO QHS 30 Days #30 tablet Hydralazine HCl [Apresoline 25 mg Tablet] 75 mg PO Q8 30 Days #135 tablet Hydrochlorothiazide [Hydrodiuril 25 mg Tablet] 25 mg PO QAM 30 Days #30 tablet Lisinopril [Prinivil 10 mg Tablet] 40 mg PO DAILY 30 Days #30 tablet Pantoprazole Sodium [Protonix [address] Tablet] 40 mg PO BID@0600,1700 30 Days #30 [address].dr Home Medications: Amlodipine Besylate [Norvasc 10 mg Tablet] 10 mg PO QHS 30 Days #30 tablet 09/17/18 Aspirin [Ecotrin 81 mg EC Tablet] 81 mg PO DAILY tabec 09/17/18 Atorvastatin Calcium [Lipitor 10 mg Tablet] 10 mg PO QHS 30 Days #30 tablet 09/17/18 Hydralazine HCl [Apresoline 25 mg Tablet] 75 mg PO Q8 30 Days #135 tablet 09/17/18 Hydrochlorothiazide [Hydrodiuril 25 mg Tablet] 25 mg PO QAM 30 Days #30 tablet 0 09/17/18 Lisinopril [Prinivil 10 mg Tablet] 40 mg PO DAILY 30 Days #30 tablet 09/17/18 Multivitamins W-Iron [Flintstones Chewable Multivit W/Fe Tab] 2 tab PO DAILY tab.chew 09/17/18 Pantoprazole Sodium [Protonix [address] Tablet] 40 mg PO BID@0600,1700 30 Days #30 tablet. 09/17/18 History of Present Illness History of Present Illness: HUMA GARCIA is a 58 year old female who presented to the ER with a complaint of chest pain. During her evaluation she was found to be extremely hypertensive. She has been since weaned off of any IV antihypertensives transition to oral hypertensives. Blood pressure is much better controlled however still very. He is remained chest pain-free since her admission. Variance in her blood pressure though she has been unable to get a stress test during her admission. Hospital Course Hospital Course: During her hospital admission she is progressed very well. She is been chest pain-free. She has had troponins negative x3. Has been unable to get her stress test due to the variance in her blood pressure. She is been started on multiple medications as tolerated them well showed no signs of orthostasis. Will need to follow-up with her family doctor within the next 5-7 days for further titration on her blood pressure medications. Echocardiogram showed some concentric LVH otherwise ejection fraction of greater than 65% Physical Exam Vital Signs: Temp Pulse Resp BP Pulse Ox 98.3 F 94 17 137/84 H 98 09/17/18 16:00 09/17/18 16:00 09/17/18 16:00 09/17/18 16:00 09/17/18 16:00 Intake & Output 09/16/18 09/17/18 09/18/18 06:59 06:59 06:59 Intake Total 1700 1575 Output Total 2270 1900 Balance -570 -325 Weight 94.2 kg 93.5 kg General appearance: PRESENT: no acute distress, cooperative Eye exam: PRESENT: EOMI, PERRLA. ABSENT: scleral icterus Ear exam: PRESENT: TM's normal bilaterally Mouth exam: PRESENT: moist, neck supple Throat exam: ABSENT: tonsillogmegaly Neck exam: PRESENT: full ROM. ABSENT: JVD, lymphadenopathy, tenderness, thyromegaly, tracheal deviation Respiratory exam: PRESENT: clear to auscultation gui. ABSENT: accessory muscle use Cardiovascular exam: PRESENT: RRR. ABSENT: gallop, rubs GI/Abdominal exam: PRESENT: normal bowel sounds, soft. ABSENT: tenderness Extremities exam: ABSENT: pedal edema, tenderness Musculoskeletal exam: PRESENT: full ROM Neurological exam: PRESENT: alert, oriented to person, oriented to place, oriented to time, oriented to situation Psychiatric exam: PRESENT: normal mood. ABSENT: agitated, anxious Skin exam: PRESENT: dry, warm Results Laboratory Results: 09/16/18 05:18 09/16/18 05:18 09/12/18 09/12/18 09/12/18 14:01 14:01 16:50 Creatine Kinase 211 H CK-MB (CK-2) 2.60 Troponin I < 0.012 < 0.012 09/13/18 07:45 Creatine Kinase CK-MB (CK-2) Troponin I < 0.012 Impressions: Chest X-Ray 09/12/18 13:56 IMPRESSION: NO ACUTE RADIOGRAPHIC FINDING IN THE CHEST. Vascular Ultrasound 09/15/18 00:00 IMPRESSION: NO DOPPLER EVIDENCE OF HEMODYNAMICALLY SIGNIFICANT RENAL ARTERY STENOSIS. Qualifiers - * PATIENT BEING DISCHARGED WITH ANY OF THE FOLLOWING DIAGNOSIS: No Plan Time Spent: Greater than 30 Minutes
[2018-09-17 18:09] VITALS: BP 180/110
[2018-09-17] MEDS ORDERED: HYDRALAZINE HCL 25 MG TABLET PO SCH (22:00)
== END 2018-09-17 18:24 | disposition home or self-care (01) | DRG 305 ==
LOC: ER 12:40 → EH 18:05 → OBSVTOIN 18:05 → INTOOBSV 18:05 → 4S 20:06 → OBSVTOIN 09-15 08:00
PROVIDERS: ADMIT Internal Medicine; ATTEND Internal Medicine
DX: I16.0 Hypertensive urgency (principal); E66.9 Obesity, unspecified; D57.3 Sickle-cell trait; I10 Essential (primary) hypertension; K21.9 Gastro-esophageal reflux disease without esophagitis; I25.2 Old myocardial infarction; Z68.33 Body mass index [BMI] 33.0-33.9, adult; Z79.82 Long term (current) use of aspirin; Z79.899 Other long term (current) drug therapy
CPT/HCPCS: 36415; 71045; 78451; 80048; 80053; 80061; 82272; 82550; 82553; 82607; 82728; 82746; 83036; 83540; 83550; 84443; 84484; 85025; 85027; 85045; 85610; 85730; 93005; 93010; 93306; 93976; 96374; 99285; A9500; G0378; J0360; J1650; J1940; J2405; J3490